=== PATIENT | female | born 1960 | race Caucasian/White ===

== ENCOUNTER 2021-10-13 09:53 | Outpatient (CLI) | payer OTHER | END 2021-10-13 20:13 | disposition home or self-care (01) | LOC: SRD 09:53 | PROVIDERS: ATTEND Specialist | DX: I08.1 Rheumatic disorders of both mitral and tricuspid valves (principal); R93.1 Abnormal findings on diagnostic imaging of heart and coronary circulation; C50.412 Malignant neoplasm of upper-outer quadrant of left female breast | CPT/HCPCS: 93306 ==

== ENCOUNTER 2022-04-25 10:01 | Outpatient (CLI) | payer OTHER | END 2022-04-25 20:01 | disposition home or self-care (01) | LOC: SCA 10:01 | PROVIDERS: ATTEND Specialist | DX: I34.0 Nonrheumatic mitral (valve) insufficiency (principal); I51.7 Cardiomegaly; C50.412 Malignant neoplasm of upper-outer quadrant of left female breast; R94.31 Abnormal electrocardiogram [ECG] [EKG] | CPT/HCPCS: 93306 ==

== ENCOUNTER 2024-04-02 12:21 | Inpatient (IN) | payer OTHER ==
[2024-04-02] VITALS (7 sets, daily range): BP systolic 116–175; PULSE 62–80; RESP 13–20; TEMP 96.9–98; O2SAT 60–98
[~2024-04-02] VITALS: Ht 172.7 cm; Wt 93.0 kg
[2024-04-02] MEDS: ASPIRIN 325 MG TABLET PO ONE (12:33)
[2024-04-02 12:56] LABS: BASOPHILS # (AUTO) 0.1 K/uL (0.0-0.2); BASOPHILS % (AUTO) 1.1 % (0.0-2.0); EOSINOPHILS # (AUTO) 0.2 K/uL (0.0-0.4); EOSINOPHILS % (AUTO) 2.1 % (0.0-4.0); HEMATOCRIT 40.1 % (36-48); HEMOGLOBIN 13.2 g/dL (12.0-16.0); LYMPHOCYTES # (AUTO) 1.6 K/uL (1.0-5.5); LYMPHOCYTES % (AUTO) 21.4 % (20.5-51.5); MEAN CORPUSCULAR HEMOGLOBIN 29 pg (27-31); MEAN CORPUSCULAR HGB CONC 33 % (32-36); MEAN CORPUSCULAR VOLUME 89 fL (79.0-98.0); MONOCYTES # (AUTO) 0.5 K/uL (0.0-1.0); MONOCYTES % (AUTO) 6.6 % (1.7-9.3); NEUTROPHILS # (AUTO) 5.2 K/uL (1.8-7.7); NEUTROPHILS % (AUTO) 68.8 % (40.0-70.0); PLATELET COUNT (AUTO) 249 K/uL (130-430); RED BLOOD CELL COUNT(AUTO) 4.53 MIL/uL (4.2-6.2); RED CELL DISTRIBUTION WIDTH 15.1 % (9.0-15.0); WHITE BLOOD COUNT (AUTO) 7.5 K/uL (4.8-10.8)
[2024-04-02 13:16] LABS: ANION GAP 9 (5-15); CALCIUM 8.7 mg/dL (8.4-11.0); CARBON DIOXIDE 25 mmol/L (23-29); CHLORIDE 106 mmol/L (98-107); CREATININE 0.58 mg/dL (0.55-1.30); GFR AFRICAN AMERICAN 134 mL/min (>90); GFR NON AFRICAN-AMERICAN 111 mL/min (>90); GLUCOSE 113 mg/dL (74-106); POTASSIUM 4.3 mmol/L (3.5-5.1); SODIUM SERUM 140 mmol/L (136-145); UREA NITROGEN, BLOOD 19 mg/dL (8-21)
[2024-04-02] MEDS ORDERED: hydrALAZINE HCL 20 MG/ML VIAL IVP PRN (13:45)
[2024-04-02] MEDS ORDERED: BIOT10006 PO (13:54)
[2024-04-02] MEDS ORDERED: SACU1TAB7 PO (13:54)
[2024-04-02] MEDS ORDERED: ATEN-41 PO (13:54)
[2024-04-02] MEDS ORDERED: VITA180C6 PO (13:54)
[2024-04-02] MEDS ORDERED: MAGN100C6 PO (13:54)
[2024-04-02] MEDS ORDERED: ANAS1TAB PO (13:54)
[2024-04-02] MEDS ORDERED: UBID1CAP59 PO (13:54)
[2024-04-02] MEDS ORDERED: IBAN150T21 PO (13:54)
[2024-04-02] MEDS ORDERED: PLAN450C PO (13:54)
[2024-04-02] MEDS ORDERED: OMEP40CA20 PO (13:54)
[2024-04-02] MEDS ORDERED: FURO20TA4 PO (13:54)
[2024-04-02] MEDS ORDERED: CHOL500013 PO (13:54)
[2024-04-02] MEDS ORDERED: CYAN50009 PO (13:54)
[2024-04-02] MEDS ORDERED: DIGE1TAB PO (14:00)
[2024-04-02] MEDS ORDERED: BERB500C PO (14:00)
[2024-04-02] MEDS ORDERED: [UNRECOGNIZED DRUG - CODE] PO (14:00)
[2024-04-02] MEDS ORDERED: IBANDRONATE SODIUM 150 MG PO SCH (19:30)
[2024-04-02] MEDS ORDERED: ZOLPIDEM TARTRATE 5 MG TABLET PO PRN (19:45)
[2024-04-02] MEDS ORDERED: ACETAMINOPHEN 325 MG TABLET PO PRN (19:45)
[2024-04-02] MEDS ORDERED: ONDANSETRON HCL 4 MG/2 ML VIAL IVP PRN (19:45)
[2024-04-02] MEDS: NITROGLYCERIN 0.4 MG TAB.SUBL SL PRN (19:52)
[2024-04-02] MEDS ORDERED: DEXTROSE 50% JECT 50 ML DISP.SYRIN IVP PRN (20:15)
[2024-04-02] MEDS ORDERED: LORazepam 1 MG TABLET PO PRN (20:45)
[2024-04-02] MEDS: NITROGLYCERIN 1 INCH (GM) OINT. TP SCH (20:52)
[2024-04-02] MEDS: ENOXAPARIN SODIUM 40 MG/0.4 ML SYRINGE SUBCUT SCH (20:52)
[2024-04-02] MEDS ORDERED: BERBERINE CHLORIDE PO SCH (21:00)
[2024-04-02] MEDS ORDERED: MAGNESIUM GLYCINATE 400 MG PO SCH (21:00)
[2024-04-02] MEDS ORDERED: [UNRECOGNIZED DRUG - REMARK] PO SCH (21:00)
[2024-04-02] MEDS ORDERED: NON-FORMULARY MEDICATION (Sacubitril/Valsartan (Entresto 49 mg-51 mg Tablet) 1 EACH) PO SCH (21:00)
[2024-04-02] MEDS: INSULIN REGULAR, HUMAN 100 UNITS/ML, 3 ML VIAL (humuLIN R) SUBCUT PRN (21:02)
[2024-04-02] MEDS: LORazepam 1 MG TABLET PO ONE (21:12)
[2024-04-03] VITALS: BP_SYST 131; PULSE 60; RESP 20; TEMP 98; O2SAT 96
[2024-04-03 04:00] VITALS: BP_SYST 131; PULSE 63; RESP 16; O2SAT 96
[2024-04-03 06:10] LABS: BASOPHILS # (AUTO) 0.1 K/uL (0.0-0.2); BASOPHILS % (AUTO) 1.3 % (0.0-2.0); EOSINOPHILS # (AUTO) 0.1 K/uL (0.0-0.4); EOSINOPHILS % (AUTO) 2.2 % (0.0-4.0); HEMATOCRIT 39.1 % (36-48); LYMPHOCYTES # (AUTO) 1.5 K/uL (1.0-5.5); LYMPHOCYTES % (AUTO) 29.9 % (20.5-51.5); MEAN CORPUSCULAR HEMOGLOBIN 29 pg (27-31); MEAN CORPUSCULAR HGB CONC 33 % (32-36); MEAN CORPUSCULAR VOLUME 88 fL (79.0-98.0); MONOCYTES # (AUTO) 0.4 K/uL (0.0-1.0); MONOCYTES % (AUTO) 7.1 % (1.7-9.3); NEUTROPHILS # (AUTO) 3.1 K/uL (1.8-7.7); NEUTROPHILS % (AUTO) 59.5 % (40.0-70.0); PLATELET COUNT (AUTO) 221 K/uL (130-430); RED BLOOD CELL COUNT(AUTO) 4.45 MIL/uL (4.2-6.2); RED CELL DISTRIBUTION WIDTH 14.8 % (9.0-15.0); WHITE BLOOD COUNT (AUTO) 5.1 K/uL (4.8-10.8)
[2024-04-03 06:30] LABS: PROTHROMBIN TIME 10.4 SECS (9.5-12.5)
[2024-04-03 06:47] LABS: ALBUMIN 3.2 g/dL (3.4-4.8); CALCIUM 8.6 mg/dL (8.4-11.0); CREATININE 0.63 mg/dL (0.55-1.30); FREE T4 (FREE THYROXINE) 0.9 ng/dL (0.6-1.6); POTASSIUM 3.8 mmol/L (3.5-5.1); THYROID STIMULATING HORMONE 3.15 uIu/mL (0.34-4.82); TOTAL BILIRUBIN 0.4 mg/dL (0.0-1.0); TOTAL PROTEIN, SERUM 6.7 g/dL (6.4-8.3)
[2024-04-03 08:00] VITALS: BP_SYST 124; PULSE 79; RESP 16; TEMP 97.8; O2SAT 99
[2024-04-03] MEDS ORDERED: CALCIUM PHOSPHATE TRIB PO SCH (09:00)
[2024-04-03] MEDS ORDERED: VIT D3 PO SCH (09:00)
[2024-04-03] MEDS ORDERED: VITAMIN E 400 UNIT CAPSULE PO SCH (09:00)
[2024-04-03] MEDS ORDERED: FUROSEMIDE 20 MG TABLET PO SCH (09:00)
[2024-04-03] MEDS ORDERED: [UNRECOGNIZED DRUG - OTHER] PO SCH (09:00)
[2024-04-03] MEDS ORDERED: CYANOCOBALAMIN 5000 MCG PO SCH (09:00)
[2024-04-03] MEDS ORDERED: NON-FORMULARY MEDICATION (Biotin 10,000 MCG) PO SCH (09:00)
[2024-04-03] MEDS: PANTOPRAZOLE SODIUM 40 MG TAB PO SCH (09:03)
[2024-04-03] MEDS: ASPIRIN 81 MG TABLET(ECOTRIN) PO SCH (09:03)
[2024-04-03] MEDS: CHOLECALCIFEROL (VITAMIN D3) 5,000 UNIT TABLET PO SCH (09:03)
[2024-04-03] MEDS: ATENOLOL 25 MG TABLET(TENORMIN) PO SCH (09:04)
[2024-04-03] MEDS: FUROSEMIDE 20 MG TABLET PO SCH (09:04)
[2024-04-03] MEDS: ANASTROZOLE 1 MG TABLET (ARIMIDEX) PO SCH (09:05)
[2024-04-03 12:12] VITALS: BP_SYST 139; PULSE 57; RESP 18; TEMP 98; O2SAT 95
[2024-04-03] MEDS ORDERED: NITR1PAT84 TD (14:14)
[2024-04-03] MEDS ORDERED: ASPI-1393 PO (14:20)
[2024-04-03 16:03] VITALS: BP_SYST 118; PULSE 67; RESP 18; TEMP 98.2; O2SAT 98
[2024-04-03] MEDS: NITROGLYCERIN 0.2 MG/HR PATCH.TD24 TD ONE (16:03)
[2024-04-03 16:59] VITALS: BP_SYST 116; PULSE 67; RESP 14; TEMP 98.6; O2SAT 98
[2024-04-04] MEDS ORDERED: REGADENOSON 0.4 MG/5 ML SYRINGE IVP ONE (09:00)
[2024-04-04] MEDS ORDERED: NITROGLYCERIN 0.2 MG/HR PATCH.TD24 TD SCH (09:00)
== END 2024-04-03 16:20 | disposition home or self-care (01) | DRG 311 ==
LOC: SED 12:21 → STU 13:34
PROVIDERS: ADMIT Internal Medicine; ATTEND Internal Medicine
DX: I20.0 Unstable angina (principal); I42.0 Dilated cardiomyopathy; E44.1 Mild protein-calorie malnutrition; E66.9 Obesity, unspecified; I11.0 Hypertensive heart disease with heart failure; I50.9 Heart failure, unspecified; R73.03 Prediabetes; E78.00 Pure hypercholesterolemia, unspecified; F41.9 Anxiety disorder, unspecified; Z85.3 Personal history of malignant neoplasm of breast; Z92.21 Personal history of antineoplastic chemotherapy; Z92.3 Personal history of irradiation; Z98.84 Bariatric surgery status; Z68.31 Body mass index [BMI] 31.0-31.9, adult; Z98.891 History of uterine scar from previous surgery
CPT/HCPCS: 36415; 71045; 80048; 80053; 80061; 82948; 83037; 83880; 84439; 84443; 84484; 85025; 85610; 85730; 93005; 93306; 99285; G0378; J1650; J2785